=== PATIENT | male | born 1945 | race Caucasian/White ===

== ENCOUNTER 2021-08-31 10:11 | Inpatient (IN) | payer OTHER ==
[2021-08-31] MEDS ORDERED: NA CHLORIDE 0.9% 1,000 ML ONE (10:42)
[2021-08-31 10:49] LABS: Absolute Lymphocytes (CBC) 0.5 K/uL (0.7-4.9); Hematocrit 43.3 % (39.6-49.0); Lymphocytes % 9.9 % (15.3-44.8); MCV 88.4 fL (80-100); MPV 7.8 fL (7.6-11.3)
[2021-08-31 11:10] LABS: Protime INR 1.27
--- NOTE | 2021-08-31 11:17 | RAD REPORT ---
EXAM DESCRIPTION: CT - Ct Stroke Brain Wo Cont - 08/31/2021 11:06 am CLINICAL HISTORY: Slurred speech Headache, drowsiness, CVA symptomology COMPARISON: No comparisons TECHNIQUE: All CT scans are performed using dose optimization technique as appropriate and may inclu de automated exposure control or mA/KV adjustment according to patient size. FINDINGS: No intracranial hemorrhage, hydrocephalus or extra-axial fluid collection.Mild brain atrop hy.No areas of brain edema or evidence of midline shift. Vertebral atherosclerosis. The paranasal sinuses and mastoids are clear. The calvarium is intact. IMPRESSION: No acute intracranial abnormality. The findings were discussed with Dr Galan in the Er on 08/31/2021 at 10:25 a.m. by telephone.
[2021-08-31 11:23] LABS: Albumin 3.7 g/dL (3.4-5.0); Potassium 4.3 mmol/L (3.5-5.1)
[2021-08-31 11:28] LABS: SARS-CoV-2 Antigen Rapid Res Negative (Negative)
[2021-08-31 11:35] LABS: Urine Blood Trace-intact (Negative); Urine Glucose Negative (Negative); Urine Protein Trace (Negative); Urine Specific Gravity >=1.030 (1.005-1.030)
[2021-08-31 11:54] LABS: Urine Bacteria <20 /HPF (<20); Urine RBC <5 /HPF (None Seen)
[2021-08-31 11:55] LABS: Urine Mucus 2+ /HPF (None Seen)
--- NOTE | 2021-08-31 12:03 | RAD REPORT ---
EXAM DESCRIPTION: CT - Chest Abdomen Pelvis W Cont - 08/31/2021 11:51 am CLINICAL HISTORY: Chest and abdomen pain. Abdominal pain confusion s/p hernia surgery 2 days ago COMPARISON: No comparisons TECHNIQUE: Approximately 100 mL nonionic IV contrast was administered to the patient. All CT scans are performed using dose optimization technique as appropriate and may include automated exposure control or mA/KV adjustment according to patient size. FINDINGS: The lungs are clear.No pleural or pericardial effusion.No intrathoracic adenopathy. The liver, spleen, pancreas, adrenal glands and kidneys are within normal limits. Small volume pneumo bilia with cholecystectomy clips. Trace free air is present likely related to recent surgery. No bowel obstruction is present. Nonvisua lized appendix. Postsurgical changes left inguinal region noted with mild inflammation present in the region. No pathologic lymphadenopathy in the abdomen or pelvis. Moderate lumbar degenerative changes. IMPRESSION: No acute abnormality is identified.
--- NOTE | 2021-08-31 13:02 | ER ---
Nurse's Notes [facility] Name: Minesh Gutierrez Age: 75 yrs Sex: Male : 1945 Arrival Date: 08/31/2021 Time: 10:11 Bed 5 Private MD: Diagnosis: Altered Mental Status Presentation: 08/31 10:35 Chief complaint: Spouse and/or significant other states: states he had hernia bm7 surgery this week and yesterday he took a long nap around 11AM and when he woke up at 5PM he was not acting normal, conufused, and falling. Coronavirus screen: Vaccine status: Patient reports receiving the 1st dose of the Covid vaccine. Ebola Screen: Patient denies exposure to infectious person. Patient denies travel to an Ebola-affected area in the 21 days before illness onset. An acute neurological deficit is present. The charge nurse has been notified. The patients blood glucose was checked before arriving to the hospital and was found to be normal. Initial Sepsis Screen: Does the patient meet any 2 criteria? Altered Mental Status. HR > 90 bpm. Does the patient have a suspected source of infection? Yes: Skin breakdown/wound Other: pt had abdominal hernia repair on Saturday Risk Assessment: Do you want to hurt yourself or someone else? Patient reports no desire to harm self or others. Onset of symptoms was August 30, 2021 at 17:00. Care prior to arrival: Medication(s) given: vicodin yesterday evening. 10:35 Method Of Arrival: Wheelchair bm7 10:35 Acuity: CHARLEY 2 bm7 Triage Assessment: 10:43 The onset of the patients symptoms was more than six hours ago. General: Appears obese, bm7 Behavior is anxious, restless. Pain: Denies pain. EENT: No deficits noted. No signs and/or symptoms were reported regarding the EENT system. Neuro: Level of Consciousness is awake, alert, confused, Oriented to none Installation Superintendent are weak on left Weakness in left leg(s) Gait is unsteady, Speech is slurred, Facial symmetry appears normal, Pupils are PERRLA, Reports pt confused all history per . Cardiovascular: No deficits noted. Respiratory: Respiratory pattern is regular, symmetrical. GI: Abdomen is round Bowel sounds hypoactive in right upper quadrant and left upper quadrant. : No deficits noted. No signs and/or symptoms were reported regarding the genitourinary system. Derm: Skin is intact, is healthy with good turgor, Skin is dry, Skin is normal, Skin temperature is warm. Musculoskeletal: No deficits noted. No signs and/or symptoms reported regarding the musculoskeletal system. Stroke Activation: Physician: Stroke Attending; Name: Adama; Notified At: 10:20; Arrived At: Physician: Chief Stroke Resident; Name: ; Notified At: 10:20; Arrived At: Physician: Stroke Resident; Name: ; Notified At: 10:20; Arrived At: Physician: ED Attending; Name: ; Notified At: 10:20; Arrived At: Physician: ED Resident; Name: ; Notified At: 10:20; Arrived At: Historical: - Allergies: 10:43 No Known Allergies; bm7 - Home Meds: 10:43 amlodipine 2.5 mg tab 1 tab once daily [Active]; lisinopril-hydrochlorothiazide 20-12.5 bm7 mg Oral tab 1 tab once daily [Active]; Nexium 20 mg Oral cpDR 1 cap once daily [Active]; tetracycline 250 mg Oral cap 2 times per day [Active]; - PMHx: 10:43 Hypertension; rosasia; Barretts; bm7 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 - Social history:: Smoking status: Patient/guardian denies using. - Code Status:: unknown. Screenin:48 Abuse screen: Denies threats or abuse. Nutritional screening: pt had abdominal surgery bm7 . Tuberculosis screening: No symptoms or risk factors identified. Fall Risk Gait- Mental Status-. Assessment: 10:48 VAN Scoring: Arm Drift: Minor drift Visual Disturbance: No visual disturbance noted. bm7 Aphasia: Expressive aphasia noted. Provider notified of +VAN scoring. VAN Scoring: Aphasia: Expressive aphasia noted. Provider notified of +VAN scoring. Patient has been NPO before screening. The patient is alert, and able to follow commands. The patient exhibits slurred or garbled speech. The patient is exhibiting difficulty speaking. The patient is exhibiting difficulty understanding words. The patient is able to swallow own secretions with no drooling or need for suction. TNKase (Tenecteplase) Screening:. Reassessment: No changes from previously documented assessment. 11:09 Patient tolerated one teaspoon of water. No drooling, immediate coughing, gurgling, or bm7 clearing of the throat was noted. The patient tolerated 90mL of water. No drooling, immediate coughing, gurgling, or clearing of the throat was noted. The patient passed the bedside swallow screening. Oral medications may be given as ordered. Contact Physician for further diet orders. Provider notified of bedside swallow screening results: Daiana Galan MD. 11:15 Reassessment: states that pt has the urge to void but is not able to. Assisted bm7 with urinal. Pt unable to void. . 11:16 : Swelling noted on scrotum scrotum is swollen and bruised from surgery. EENT: Eyes bm7 pt is blind in the left eye. Derm: Wound noted umbilical area. 11:17 Derm: Wound noted left lower quadrant surgical incision covered with gauze and intact. bm7 No drainage noted. 12:13 Reassessment: Patient and/or family updated on plan of care and expected duration. Pain bm7 level reassessed. Patient is alert, oriented x 3, equal unlabored respirations, skin warm/dry/pink. Pt resting comfortable in bed in NAD. Equal rise and fall of chest. at bedside. 12:48 Reassessment: Patient and/or family updated on plan of care and expected duration. Pain bm7 level reassessed. Patient is alert, oriented x 3, equal unlabored respirations, skin warm/dry/pink. 13:21 Reassessment: notified ERP that pt is still not oriented. ERP states he will admit him. bm7 13:57 Reassessment: Patient and/or family updated on plan of care and expected duration. Pain bm7 level reassessed. Patient is alert, oriented x 3, equal unlabored respirations, skin warm/dry/pink. General: Appears confused. Behavior is restless. Neuro: Level of Consciousness is awake, confused, lethargic, Oriented to none. Respiratory: Airway is patent Respiratory effort is even, unlabored, Respiratory pattern is symmetrical. GI: Abdomen is round. Musculoskeletal: No deficits noted. No signs and/or symptoms reported regarding the musculoskeletal system. 15:00 Reassessment: Patient and/or family updated on plan of care and expected duration. Pain bm7 level reassessed. Patient states symptoms have not improved. 15:10 Reassessment: pt is anxious and confused trying to climb out of bed. Dr. Galan notified bm7 and states he would like Dr. Sullivan to assess. Dr. Sullivan notified and is on way. 15:17 Reassessment: Dr. Alfredito Sullivan hospitalist at bedside at this time. pt appears to be tw2 restless at this time, states repeatedly "i just want to go home", hospitalist notified of pts increased restlessness. 15:44 Reassessment: Patient and/or family updated on plan of care and expected duration. Pain bm7 level reassessed. Patient is alert, oriented x 3, equal unlabored respirations, skin warm/dry/pink. pt restless and agitated. Taking off gown and blood pressure cuff. at bedside to redirect. Will continue to monitor. Patient states symptoms have not improved. 15:54 Reassessment: unable to obtain vitals due to patient ripping off blood pressure cuff, bm7 leads, and pulse ox. 16:06 Reassessment: pt moved rooms to be closer to nurses and have appropriate resurces. bm7 16:14 Reassessment: No changes from previously documented assessment. pt remains restless at tw2 this time, Medicated per floor orders in [facility] with 0.5 mg IV Ativan. See pts chart in [facility]. 16:24 Reassessment: pt lying in bed with equal rise and fall of chest. In no apparent bm7 distress. eyes closed. equal rise and fall of chest. agitation improved. Patient states symptoms have improved. 16:42 Reassessment: pt moved to MRI at this time. bm7 16:56 General: MRI called to inform that pt is anxious, confused, and restless in MRI. Pt bm7 kicking and trying to remove MRI shield to neck. MRI states they are concerned that he is going to hurt himself. MRI not able to obtain accurate images. Dr. Sullivan called and new order received to administer Ativan 0.5mg IV now. Went to [place] to administer ativan to the LAC. Medication was not effective and pt did not have a change of anxiety or confusion. Will notify Dr. Sullivan . 17:45 Reassessment: Patient is alert, oriented x 3, equal unlabored respirations, skin bm7 warm/dry/pink. resting comfortably in bed, equal rise and fall of chest. at bedside Patient states symptoms have improved. 18:21 Reassessment: warehouse technician just informed pt has a room assignment with a sitter for bm7 the overnight babysitter. 18:27 Reassessment: Patient and/or family updated on plan of care and expected duration. Pain bm7 level reassessed. Patient is alert, oriented x 3, equal unlabored respirations, skin warm/dry/pink. 18:44 General: Appears in no apparent distress. bm7 Vital Signs: 10:35 BP 158 / 78; Pulse 104; Resp 18; Temp 98.9(TE); Weight 100 kg (M); Height 5 ft. 7 in. bm7 (170.18 cm); 11:09 BP 155 / 71; Pulse 101; Resp 16; Pulse Ox 99% on R/A; bm7 12:15 BP 136 / 70; Pulse 92; Resp 16; Pulse Ox 97% on R/A; bm7 12:48 BP 154 / 75; Pulse 99; Resp 16; Pulse Ox 99% on R/A; bm7 13:05 BP 143 / 74; Pulse 95; Resp 16; Pulse Ox 98% on R/A; bm7 13:23 Temp 99.1(O); bm7 13:59 BP 152 / 72; Pulse 102; Resp 16; Pulse Ox 99% on R/A; bm7 15:11 BP 165 / 83; Pulse 108; Resp 18; Pulse Ox 98% on R/A; bm7 16:25 BP 165 / 78; Pulse 104; Resp 22; Pulse Ox 97% on R/A; bm7 17:46 BP 136 / 59; Pulse 82; Resp 16; Pulse Ox 100% on R/A; bm7 18:27 BP 140 / 62; Pulse 62; Resp 24; Pulse Ox 100% on R/A; bm7 10:35 Body Mass Index 34.53 (100.00 kg, 170.18 cm) bm7 NIH Stroke Scale Scores: 10:48 NIHSS Score: 15 bm7 ED Course: 10:11 Patient arrived in ED. mr 10:14 Blanca Corona, NBA is Primary Nurse. bm7 10:14 Daiana Galan MD is Attending Physician. sp3 10:42 Triage completed. bm7 10:43 Arm band placed on right wrist. EKG completed in triage. Results shown to MD. EKG done bm7 per protocol. Performed by ED Staff. Shown to ED physician. Labs ordered per protocol. Drawn by ED staff. CT ordered. 10:48 Initial lab(s) drawn, by ED staff, EKG done, by ED staff. bm7 10:51 Bed in low position. Call light in reach. Client placed on continuous cardiac and pulse tw2 oximetry monitoring. NIBP monitoring applied. 10:51 Inserted saline lock: 18 gauge in left antecubital area, using aseptic technique. tw2 ,using aseptic technique. NBA Cole Blood collected. 11:08 CT-STROKE BRAIN W/O CONTRAST CT In Process Unspecified. EDMS 11:09 Warm blanket given. bm7 11:30 Lee cath inserted, using sterile technique, 18 Fr., by wa, to gravity drainage, urine 6 specimen collected. duarte Rios RN served as health science specialist. 11:[address] bm7 11:39 Urine Culture Sent. jh6 11:39 Urine Microscopic Only Sent. jh6 11:53 CT Chest, Abdomen, Pelvis - W/Contrast In Process Unspecified. EDMS 12:15 Warm blanket given. Head of bed Elevated. bm7 13:33 Alfredito Sullivan MD is Hospitalizing Provider. sp3 13:57 Appears restless. Awaiting bed assignment. bm7 15:00 Urine collected: Lee catheter specimen, carmelo colored, Amount Returned: 600mL. bm7 15:01 brief applied. bm7 17:22 Patient moved back from MRI. bm7 18:27 No apparent distress. Resting quietly. bm7 19:04 Report given to 2nd floor. Per floor nurse "Send her up". bm7 Administered Medications: 10:59 Drug: NS 0.9% 1000 ml Route: IV; Rate: 1 bolus; Site: left antecubital; 6 13:06 Follow up: IV Status: Completed infusion; IV Intake: 1000ml bm7 13:57 Follow up: IV Status: Completed infusion; IV Intake: 1000ml bm7 16:56 Drug: Ativan (LORazepam) 0.5 mg Route: IVP; Site: left antecubital; bm7 18:28 Follow up: Response: Anxiety decreased bm7 Medication: 10:48 VIS not applicable for this client. bm7 Point of Care Testing: Blood Glucose: 10:43 Blood Glucose: 128 mg/dL; bm7 Ranges: Intake: 13:06 IV: 1000ml; Total: 1000ml. bm7 13:57 IV: 1000ml; Total: 2000ml. bm7 Output: 11:30 Urine: 400ml (Straight Cath); Total: 400ml. jh6 15:00 Urine: 600ml (Lee); Total: 1000ml. bm7 Outcome: 13:01 Discharge ordered by MD. sp3 13:34 Decision to Hospitalize by Provider. sp3 19:51 Patient left the ED. lp1 NIH Stroke Scale - NIH Stroke Score Date: 08/31/2021 Time: 10:48 Total Score = 15 1a. Level of Consciousness (LOC) - 0(Alert) 1b. Level of Consciousness (LOC) (Month \\T\\ Age) - 2(Neither) 1c. LOC Commands (Open \\T\\ Closes Eyes/Straight Pin Making Machine Operator) - 1(One) 2. Best Gaze (Lateral Gaze Paresis) - 0(Normal) 3. Visual Field Loss - 0(No visual loss) 4. Facial Palsy - 0(Normal) 5a. Left Arm: Motor (10-second hold) - 2(Drift, some effort against gravity) 5b. Right Arm: Motor (10-second hold) - 2(Drift, some effort against gravity) 6a. Left Leg: Motor (5-second hold - always test supine) - 2(Drift, some effort against gravity) 6b. Right Leg: Motor (5-second hold - always test supine) - 2(Drift, some effort against gravity) 7. Limb Ataxia (finger/nose \\T\\ heel/matias - test with eyes open) - 2(Present in two limbs) 8. Sensory Loss (pinprick arms/legs/face) - 0(Normal) 9. Best Language: Aphasia (description/naming/reading) - 1(Mild to moderate aphasia) 10. Dysarthria (speech clarity - read or repeat words) - 1(Mild to Moderate) 11. Extinction and Inattention (visual/tactile/auditory/spatial/personal) - 0(No abnormality) Initials: bm7 Signatures: Dispatcher [employer] MELINDAMS Herrera, Micaela mr GeovanyMacie, RN RN lp1 Yara Mcdowell, RN RN tw2 Blanca Corona, RN RN bm7 Daiana Galan MD MD sp3 Dara Edouard RN RN jh6
--- NOTE | 2021-08-31 13:02 | EDPHYS ---
Physician Documentation [facility] Name: Minesh Gutierrez Age: 75 yrs Sex: Male : 1945 Arrival Date: 08/31/2021 Time: 10:11 Bed 5 Private MD: ED Physician Daiana Galan HPI: 08/31 10:32 This 75 yrs old Male presents to ER via Unassigned with complaints of Slurred Speech. sp3 10:32 75-year-old male with a history of hypertension presents with chief complaint slurred sp3 speech, confusion and yesterday morning. Patient had hernia repair done and [place] of his umbilical hernia and right inguinal hernia which makes today postop day 2. His states that yesterday he woke up and was having decreased mental status and was generally overall weaker than his baseline. This morning his speech was slurred and so she went to the ED for evaluation. Initially stroke protocol and stroke code was activated before I saw the patient and CT scan of the head demonstrates no visualized abnormality. His reports that the last time he was acting this way he was sepsis from pancreatitis. This was approximately 6 years ago. Patient does talk but is not as responsive as I would like him to be. He does deny having any significant pain except for the area around his surgical sites. There are no reports of fever or shortness of breath.. 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 - Social history:: Smoking status: Patient/guardian denies using. - Code Status:: unknown. ROS: 10:34 Unable to obtain ROS due to patient's inability to understand questions. sp3 Exam: 10:34 Constitutional: This is a well developed, well nourished patient who is awake, alert, sp3 and in no acute distress. Head/Face: Normocephalic, atraumatic. Eyes: Pupils equal round and reactive to light, extra-ocular motions intact. Lids and lashes normal. Conjunctiva and sclera are non-icteric and not injected. Cornea within normal limits. Periorbital areas with no swelling, redness, or edema. Neck: Trachea midline, no thyromegaly or masses palpated, and no cervical lymphadenopathy. Supple, full range of motion without nuchal rigidity, or vertebral point tenderness. No Meningismus. Chest/axilla: Normal chest wall appearance and motion. Nontender with no deformity. No lesions are appreciated. Respiratory: Lungs have equal breath sounds bilaterally, clear to auscultation and percussion. No rales, rhonchi or wheezes noted. No increased work of breathing, no retractions or nasal flaring. Skin: Warm, dry with normal turgor. Normal color with no rashes, no lesions, and no evidence of cellulitis. MS/ Extremity: Pulses equal, no cyanosis. Neurovascular intact. Full, normal range of motion. 10:34 Cardiovascular: She is in a regular tachycardia on traffic monitor specialist.. 10:34 Abdomen/GI: Surgical dressings in place without visualized bleeding. There is mild pain to palpation at surgical sites only and no peritoneal signs.. 10:34 Neuro: Responsive when asked simple direct questions but does not understanding complex communication. Grossly there are no neurological deficits. Gait was not tested. Cranial nerves II through XII for intact to the extent the patient can cooperate with exam.. Vital Signs: 10:35 BP 158 / 78; Pulse 104; Resp 18; Temp 98.9(TE); Weight 100 kg (M); Height 5 ft. 7 in. bm7 (170.18 cm); 11:09 BP 155 / 71; Pulse 101; Resp 16; Pulse Ox 99% on R/A; bm7 12:15 BP 136 / 70; Pulse 92; Resp 16; Pulse Ox 97% on R/A; bm7 12:48 BP 154 / 75; Pulse 99; Resp 16; Pulse Ox 99% on R/A; bm7 13:05 BP 143 / 74; Pulse 95; Resp 16; Pulse Ox 98% on R/A; bm7 13:23 Temp 99.1(O); bm7 13:59 BP 152 / 72; Pulse 102; Resp 16; Pulse Ox 99% on R/A; bm7 15:11 BP 165 / 83; Pulse 108; Resp 18; Pulse Ox 98% on R/A; bm7 16:25 BP 165 / 78; Pulse 104; Resp 22; Pulse Ox 97% on R/A; bm7 17:46 BP 136 / 59; Pulse 82; Resp 16; Pulse Ox 100% on R/A; bm7 18:27 BP 140 / 62; Pulse 62; Resp 24; Pulse Ox 100% on R/A; bm7 10:35 Body Mass Index 34.53 (100.00 kg, 170.18 cm) bm7 NIH Stroke Scale Scores: 10:48 NIHSS Score: 15 bm7 MDM: 10:25 Patient medically screened. sp3 10:37 Data reviewed: vital signs, nurses notes. ED course: 75-year-old male presents with sp3 slurred speech and altered mental status status post hernia repair postop day 2. Initial CT scan is negative and at this time I do not believe this is primarily a neurological problem. I am more concerned about sepsis and or delirium/electrolyte abnormality. Will obtain laboratory values and sepsis work-up including a CT scan of the chest abdomen and pelvis to assess for lung infection and/or abdominal complication from surgery. Normal saline 1 L has been given and we will add antibiotics if indicated.. 13:00 ED course: Is full imaging and laboratory values reviewed. There is no current sp3 identified etiology for patient's declining mental status. Will admit patient for observation, hydration for mildly elevated creatinine, and neurological consultation. Further imaging and work-up deferred to inpatient team.. 08/31 10:30 Order name: Blood Culture Adult (2) sp3 08/31 10:30 Order name: CBC with Diff; Complete Time: 11:29 sp3 08/31 10:30 Order name: CMP; Complete Time: 11:29 sp3 08/31 10:30 Order name: Lactate; Complete Time: 11: sp3 08/31 10:30 Order name: Protime (+inr); Complete Time: 11:29 sp3 08/31 10:30 Order name: Ptt, Activated; Complete Time: 11: sp3 08/31 10:30 Order name: Urine Culture sp3 08/31 10:30 Order name: Urine Microscopic Only; Complete Time: 12:03 [facility] 08/31 10:31 Order name: CT Chest, Abdomen, Pelvis - W/Contrast; Complete Time: 12:55 [facility] 08/31 10:56 Order name: CT-STROKE BRAIN W/O CONTRAST CT; Complete Time: 11:29 08/31 10:57 Order name: SARS RAPID; Complete Time: 11:29 08/31 11:36 Order name: Urine Dipstick-Ancillary; Complete Time: 12:03 [facility] 08/31 12:23 Order name: Glucose, Ancillary Testing; Complete Time: 12:55 [facility] 08/31 18:16 Order name: MRI [facility] 08/31 10:30 Order name: Accucheck; Complete Time: 11:00 [facility] 08/31 10:30 Order name: Cardiac monitoring; Complete Time: 10:39 [facility] 08/31 10:30 Order name: EKG - Nurse/Tech; Complete Time: 10:39 [facility] 08/31 10:30 Order name: IV Saline Lock - Large Bore; Complete Time: 11:39 [facility] 08/31 10:30 Order name: Labs collected and sent; Complete Time: 11:00 [facility] 08/31 10:30 Order name: O2 Per Protocol; Complete Time: 11:00 [facility] 08/31 10:30 Order name: O2 Sat Monitoring; Complete Time: 10:59 [facility] 08/31 11:39 Order name: Cath; Complete Time: 11:39 [facility] 08/31 15:59 Order name: CONS Physician Consult [facility] Administered Medications: 10:59 Drug: NS 0.9% 1000 ml Route: IV; Rate: 1 bolus; Site: left antecubital; [facility] 13:06 Follow up: IV Status: Completed infusion; IV Intake: 1000ml [facility] 13:57 Follow up: IV Status: Completed infusion; IV Intake: 1000ml 7 16:56 Drug: Ativan (LORazepam) 0.5 mg Route: IVP; Site: left antecubital; [facility] 18:28 Follow up: Response: Anxiety decreased bm7 Point of Care Testing: Blood Glucose: 10:43 Blood Glucose: 128 mg/dL; 7 Ranges: Critical Glucose Levels:Adult <50 mg/dl or >400 mg/dl <40 mg/dl or >180 mg/dl Disposition Summary: 08/31/21 13:34 Hospitalization Ordered Hospitalization Status: Inpatient Admission sp3 Provider: Alfredito Sullivan sp3 Location: Telemetry/MedSurg (Inpatient)(08/31/21 13:34) sp3 Condition: Stable(08/31/21 13:34) sp3 Problem: new sp3 Symptoms: have worsened sp3 Bed/Room Type: Standard sp3 Room Assignment: 201(08/31/21 18:19) bd Diagnosis - Altered Mental Status sp3 Forms: - Medication Reconciliation Form sp3 - SBAR form sp3 NIH Stroke Scale - NIH Stroke Score Date: 08/31/2021 Time: 10:48 Total Score = 15 1a. Level of Consciousness (LOC) - 0(Alert) 1b. Level of Consciousness (LOC) (Month \T\ Age) - 2(Neither) 1c. LOC Commands (Open \T\ Closes Eyes/Associate Field Service Engineer) - 1(One) 2. Best Gaze (Lateral Gaze Paresis) - 0(Normal) 3. Visual Field Loss - 0(No visual loss) 4. Facial Palsy - 0(Normal) 5a. Left Arm: Motor (10-second hold) - 2(Drift, some effort against gravity) 5b. Right Arm: Motor (10-second hold) - 2(Drift, some effort against gravity) 6a. Left Leg: Motor (5-second hold - always test supine) - 2(Drift, some effort against gravity) 6b. Right Leg: Motor (5-second hold - always test supine) - 2(Drift, some effort against gravity) 7. Limb Ataxia (finger/nose \T\ heel/matias - test with eyes open) - 2(Present in two limbs) 8. Sensory Loss (pinprick arms/legs/face) - 0(Normal) 9. Best Language: Aphasia (description/naming/reading) - 1(Mild to moderate aphasia) 10. Dysarthria (speech clarity - read or repeat words) - 1(Mild to Moderate) 11. Extinction and Inattention (visual/tactile/auditory/spatial/personal) - 0(No abnormality) Initials: bm7 Signatures: Dispatcher [employer] EDMS Ann Arndt Brittany, RN RN bm7 Daiana Galan MD MD 3 Dara Edouard RN RN 6 Corrections: (The following items were deleted from the chart) 13:32 13:00 ED course: Patient is improved and states that he is almost back to sp3 his baseline. CT scan and all laboratory values show no significant abnormality. Patient has urine output and received 1 L normal saline. There is no indication for antibiotics at this time. We will discharge patient home and have him follow-up with the surgeon as needed.. sp3 13:33 13:01 Home sp3 sp3 13:33 13:01 Stable sp3 sp3 13:33 13:01 Weakness sp3 sp3 18:19 13:34 sp3 bd
[2021-08-31] MEDS ORDERED: ONDANSETRON 4 MG/2 ML VIAL IV PRN (16:03)
[2021-08-31] MEDS ORDERED: LORazepam 2 MG/ML VIAL IV PRN (16:03)
--- OUTSIDE RECORDS SUMMARY | 2021-08-31 16:13 | XMS REPORT | Continuity of Care Document ---
:1945 Author Organization [facility] t Address [address] [place] [address] [address]. [address] [place] [address] Care Team Providers Name Role Phone Adolph QA TEST ANALYST Primary Care Physician CORNING Attending Clinician Unavailable Doctor Unassigned, Name Attending Clinician Unavailable Chacorta SKAGGS, K.H. Attending Clinician Payers Payer Name Policy Type Policy Number Effective Date Expiration Date S ource Problems Condition Condition Condition Status Onset Resolution Last Treating Co mments Source Name Details Category Date Date Treatment Clinician Date Other Other Disease Active Univers constipati constipati 10-18 it y of on on 00:00: [address] Esophageal Esophageal Disease Active U nivers reflux reflux 10-18 ity of 00:00: [address] Jaundice Jaundice Disease Active Unive rs 1-17 ity of 00:00: [address] Vargas's Vargas's Disease Active Overview: Univers esophagus esophagus 6-12 Formattin i ty of without without 00:00: g of this [place] dysplasia dysplasia 00 note Medi natasha might be Branch different from the original. Added automatic ally from request for surgery [id number] Allergies, Adverse Reactions, Alerts Allergy Allergy Status Severity Reaction(s) Onset Inactive Treating Comm ents Source Name Type Date Date Clinician NO KNOWN Drug Active Univers ALLERGIE Class ity of S [facility] Social History Social Habit Start Date Stop Date Quantity Comments Source History of tobacco Cigarette Smoker University of use [facility] Exposure to 2021-08-05 2021-08-15 Not sure University SARS-CoV-2 (event) 00:00:00 12:13:00 [facility] Alcohol intake 2021-08-15 2021-08-15 Ex-drinker [facility] 00:00:00 00:00:00 (finding) [facility] Cigarettes smoked 2020-02-28 2020-02-28 Univers ity of current (pack per 00:00:00 00:00:00 ) - Reported Branch Cigarette 2020-02-28 2020-02-28 University of pack-years 00:00:00 00:00:00 [facility] Tobacco use and 2020-02-28 2020-02-28 Former smokeless Uni versity of exposure 00:00:00 00:00:00 tobacco user [facility] Sex Assigned At [birth year] Universit y of 00:00:00 00:00:00 [facility] Smoking Status Start Date Stop Date Source Ex-smoker 2020-02-28 00:00:00 2020-02-28 00:00:00 Universi ty [facility] Medications Ordered Filled Start Stop Current Ordering Indication Dosage Frequency Signature Comments Components Source Medication Medication Date Date Medication? Clinician (SIG) Name Name aspirin 81 Yes 81mg Take 81 mg U nivers mg chewable 7-05 by mouth ity of tablet 12:24: daily. [address] aspirin 81 Yes 81mg Take 81 mg U nivers mg chewable 7-05 by mouth ity of tablet 12:24: daily. [address] omeprazole Yes [id number] 20mg Take 1 Univers 20 mg 7-05 capsule by ity of capsule 00:00: mouth [place] daily. [facility] atorvastati Yes 20mg Take 20 mg Univers n 20 mg 6-21 by mouth ity of tablet 00:00: daily. [facility] levothyroxi Yes 25ug Take 25 Uni vers ne 25 mcg 6-21 mcg by ity of tablet 00:00: mouth. [facility] atorvastati Yes 20mg Take 20 mg Univers n 20 mg 6-21 by mouth ity of tablet 00:00: daily. [facility] levothyroxi Yes 25ug Take 25 Uni vers ne 25 mcg 6-21 mcg by ity of tablet 00:00: mouth. 00 Medical Branch meloxicam Yes [id number] 15mg Take 1 Univers (MOBIC) 15 6-17 9100 tablet by ity of mg tablet 00:00: mouth 00 daily. Medical Branch meloxicam Yes [id number] 15mg Take 1 Univers (MOBIC) 15 6-17 9100 tablet by ity of mg tablet 00:00: mouth 00 daily. Medical Branch valACYclovi 2020-02 Yes Univer s r 1 gram 0-25 ity of tablet 00:00: 00 Medical Branch valACYclovi 2020-02 Yes Univer s r 1 gram 0-25 ity of tablet 00:00: Medical Branch omeprazole 2021- No [id number] 20mg Take 1 Univers 20 mg 10-19 capsule by ity of capsule 00:00: 00:00 mouth [place] 00 :00 daily. Medical Branch Immunizations Ordered Filled Immunization Date Status Comments [facility] Immunization Name Name SARS-COV-2 COVID-19 2020-12-20 Completed Unive rsity of MODERNA 0.25ML 00:00:00 [facility] natasha BOOSTER VACCINE Branch SARS-COV-2 COVID-19 2020-12-20 Completed Unive rsity of MODERNA 0.25ML 00:00:00 [facility] BOOSTER VACCINE Branch SARS-COV-2 COVID-19 2020-03-22 Completed Unive rsity of MODERNA VACCINE 00:00:00 [facility] SARS-COV-2 COVID-19 2020-03-22 Completed Unive rsity of MODERNA VACCINE 00:00:00 [facility] SARS-COV-2 COVID-19 2020-02-23 Completed Unive rsity of MODERNA VACCINE 00:00:00 [facility] SARS-COV-2 COVID-19 2020-02-23 Completed Unive rsity of MODERNA VACCINE 00:00:00 [facility] Vital Signs Vital Name Observation Time Observation Value Comments Source Systolic blood 2021-08-09 15:22:00 130 mm[Hg] Univer sity of pressure [facility] Diastolic blood 2021-08-09 15:22:00 66 mm[Hg] Unive rsity of pressure [facility] Heart rate 2021-08-09 15:22:00 66 /min [facility] Respiratory rate 2021-08-09 15:22:00 17 /min [facility] Oxygen saturation in 2021-08-09 15:22:00 98 /min [facility] Arterial blood by [facility] Pulse oximetry [place] Body temperature 2021-08-09 15:18:00 36.33 Yolanda [facility] Body height 2021-08-09 15:18:00 170.2 cm [facility] Body weight 2021-08-09 15:18:00 101.424 kg [facility] BMI 2021-08-09 15:18:00 35.02 kg/m2 [facility] Procedures Procedure Date / Time Performed Performing Clinician [facility] 2021-08-21 05:01:00 Doctor Unassigned, No Univer [facility] RELEASE/CLEARANCE Name [facility] FORMS Encounters Start End Encounter Admission Attending Care Care Encounter Source Date/Time Date/Time Type Type Clinicians Facility Department ID 2022-08-16 2022-08-16 Outpatient R KEMAR [facility] [id number] N-20 Univers 11:00:00 11:00:00 ESEQUIEL [id number] ity of [facility] 2021-08-21 2021-08-21 Orders Doctor REINOSO [id number] Univers 00:00:00 00:00:00 Only Unassigned, GENO [id number] ity of [place] [facility] [id number] Ruddy as [phone] [facility] 009 Branch 2021-08-09 2021-08-[address] [facility] [id number] Univers 10:00:00 10:55:15 Visit Eda RODRIGUEZ [id number] ity of [place] [id number] [place] PROF[place] [phone] [place] NAL 059 Branch BUILDING Results This patient has no known results.
[2021-08-31] MEDS ORDERED: NA CHLORIDE 0.9% 1,000 ML IV SCH (17:00)
[2021-08-31] MEDS ORDERED: LORazepam 2 MG/ML VIAL ONE (17:07)
--- NOTE | 2021-08-31 18:13 | RAD REPORT ---
EXAM DESCRIPTION: MRI - Brain Wo Cont - 08/31/2021 5:25 pm CLINICAL HISTORY: altered mentation,slurred speech,r/o CVA COMPARISON: Chest Single View dated 02/07/2020; Chest Pa And Lat (2 Views) dated 06/11/2017; Chest Pa And Lat (2 Views) dated 05/02/2016; CHEST PA AND LAT 2 VIEW dated 12/19/2010rain Wo Cont dated 6; MRA Head Wo Cont dated 07/14/2015 TECHNIQUE: Sagittal T1-weighted images were obtained along with PD/heavily T2-weighted and T2-FLAIR images. Axial DWI and ADC mapping sequences were also obtained along with coronal heavily T2-weighted images were obtained. FINDINGS: Limited due motion. The contrast portion of the exam was not performed as the patient was unable to tolerate. Within these limitations, no evidence of an acute infract. No hydrocephalus or midline shift. Chronic small vessel ischemic changes are noted. The paranasal sinuses are largely obscured due to motion. N o mastoid effusion. The calvarium is grossly intact. IMPRESSION: Limited by motion. Grossly, no evidence of acute infarct or other intracranial abnormali ty identified.
--- NOTE | 2021-08-31 19:24 | P.HP ---
Certification for Inpatient Patient admitted to: Observation With expected LOS: <2 Midnights Practitioner: I am a practitioner with admitting privileges, knowledge of patient current condition, hospital course, and medical plan of care. Services: Services provided to patient in accordance with Admission requirements found in Title 42 Section 412.3 of the Code of Federal Regulations Patient History Date of Service: 08/31/21 Reason for admission: altered mentation, slurred speech History of Present Illness: 75yo M, PMH: HTN, Rosacea, Barretts esophagus, hypothyroidism, HLD Brought to ED due to altered mentation, generalized weakness, and slight slurred speech since yesterday ~530pm. Patient's at bedside to provide history. Patient underwent elective umbilical and inguinal hernia repair 2 days ago in [facility]. He was discharged home and was reportedly doing ok. He was tired and slept most of the day yesterday, and upon waking at 530pm, patient was noted to have some slurred speech, confusion, general weakness, and he urinated on the floor. Family helped him around. He took an additional hydrocodone around 6 pm. In the evening, his symptoms seemed to worsen according to his so they brought him to the ED today. Denies fever, no chills, no diarrhea, +flatus, no BM, no abdominal pain, no rash/lesions, no numbness/tingling, no change in vision/hearing. Throughout interview, patient states he "just wants to go home" and feels as though he needs to pee. A higgins was inserted in the ED. CT head, abd/pelvis were all negative for any acute process. Labs only notable for mild increase in creatinine. Patient admitted for further evaluation. Allergies No Known Allergies Allergy (Unverified 07/02/15 16:17) Home Medications: Amlodipine Besylate [Norvasc] 2.5 mg PO DAILY 07/02/15 Lisinopril/Hydrochlorothiazide [Zestoretic 20-12.5 mg Tablet] 1 each PO DAILY 07/02/15 Tetracycline HCl 250 mg PO BID 07/02/15 - Past Medical/Surgical History Diabetic: No -: hypothyroid -: Rosasia -: Alcoholic -: SARAH -: APPE - Family History Family History: Reviewed- Non-Contributory - Social History Smoking Status: Former smoker Alcohol use: No CD- Drugs: No Caffeine use: Yes Place of Residence: Home Review of Systems is unable to be obtained (accurately) Physical Examination - Physical Exam General: Alert, Oriented x1, Confused HEENT: PERRLA, EOMI, Sclerae nonicteric Neck: Supple Respiratory: Clear to auscultation bilaterally, Normal air movement Cardiovascular: No edema, No murmurs, Other (sinus tachycardia) Gastrointestinal: Soft and benign, Non-distended, Other (surgical incisions without evidence of infection) Musculoskeletal: No tenderness Integumentary: No rashes, No tenderness/swelling Neurological: Normal speech, Other (moves all extremities equally/bilaterally, sensation intact, strength intact, CN3-12 grossly intact) Urinary: Higgins catheter (placed in ED) - Studies Laboratory Data (last 24 hrs) 08/31/21 10:48: PT 14.0 H, INR 1.27, APTT 33.0 08/31/21 10:34: Sodium 136, Potassium 4.3, BUN 20 H, Creatinine 1.43 H, Glucose 126 H, Total Bilirubin 1.0, AST 52 H, ALT 51, Alkaline Phosphatase 98 08/31/21 10:34: WBC 4.9, Hgb 14.6, Hct 43.3, Plt Count 140 L Assessment and Plan - Advance Directives Does patient have a Living Will: No Does patient have a Durable POA for Healthcare: No Physician Review Additional Text: Problem List: Acute encephalopathy suspect secondary to opioid medication / delirium KAREN Hypothyroidism HLD Vargas's esophagus imaging negative for infectious etiology, patient does not appear septic tachycardia and mild hypertension secondary to delirium / agitation KAREN secondary to hypovolemia - post-op, didn't eat much, slept through day yesterday suspect delirium secondary to hydrocodone use. Last taken 6pm yesterday started synthroid and statin ~1 month ago, low risk for etiology no other changes in medications recently NPO for now, bedside swallow higgins inserted in ED, maintain for now MRI ordered neuro consulted IVF ativan for agitation VTE: lovenox Code: full Dispo: home, 1-2 days Time Spent Managing Pts Care (In Minutes): 65
[2021-08-31] MEDS ORDERED: ACETAMINOPHEN 325 MG TABLET PO PRN (20:14)
[2021-08-31] MEDS ORDERED: ACETAMINOPHEN 500 MG TAB PO PRN (20:30)
[2021-08-31 20:55] LABS: Thyroid Stimulating Hormone 1.53 uIU/mL (0.360-3.740)
[2021-08-31 21:06] VITALS: BMI 34.5
[2021-08-31] MEDS: NA CHLORIDE 0.9% 1,000 ML IV SCH (21:08)
[2021-08-31] MEDS: CEFOXITIN 1 GM in NA CHLORIDE 0.9% 50 ML IVPB SCH (21:15)
[2021-08-31] MEDS ORDERED: ACETAMINOPHEN 650MG/RECT SUPP PR ONE (21:23)
[2021-09-01] MEDS: NA CHLORIDE 0.9% 1,000 ML IV SCH ×4 (04:16→20:14)
[2021-09-01 04:19] LABS: Absolute Lymphocytes (CBC) 0.5 K/uL (0.7-4.9); Hematocrit 39.8 % (39.6-49.0); Lymphocytes % 10.4 % (15.3-44.8); MCV 89.1 fL (80-100); MPV 7.6 fL (7.6-11.3); RBC Red Blood Cell Count 4.47 M/uL (4.33-5.43)
[2021-09-01 04:41] LABS: Albumin 3.1 g/dL (3.4-5.0); Bilirubin Total 1.3 mg/dL (0.2-1.0); Magnesium 2.2 mg/dL (1.8-2.4); Potassium 4.2 mmol/L (3.5-5.1); Protein, Total 6.4 g/dL (6.4-8.2)
[2021-09-01] MEDS: CEFOXITIN 1 GM in NA CHLORIDE 0.9% 50 ML IVPB SCH ×3 (05:19→20:13)
--- NOTE | 2021-09-01 05:58 | P.PN ---
Date of Service: 09/01/21 Subjective: Alert and oriented x2 More pleasant, calm, not agitated Still remains confused ROS: 10 point ROS as noted above, otherwise negative Physical exam GEN: Alert, orientedx2, NAD HEENT: Normal conjunctiva, sclera anicteric CV: Regular rate and rhythm, no edema Pulm: Non-labored respirations on room air ABD: Soft, nontender, nondistended, surgical incision without erythema, no drainage Integumentary: No rashes Neuro: Normal speech, normal affect Problem List: Acute encephalopathy suspect secondary to opioid medication / delirium KAREN Hypothyroidism HLD Vargas's esophagus imaging negative for infectious etiology developed fever after admission; started on antibiotics Dr. Begum consulted, incisions do not appear infected tachycardia and mild hypertension secondary to delirium / agitation KAREN secondary to hypovolemia - post-op, didn't eat much, slept through day; improving with IVF suspect delirium secondary to hydrocodone use. Last taken 6pm day prior to admission, improving started synthroid and statin ~1 month ago, low risk for etiology no other changes in medications recently advance diet higgins inserted in ED, dc today MRI negative VTE: lovenox Code: full Dispo: home, ~1 day Time Spent Managing Pts Care (In Minutes): 35
[2021-09-01] MEDS: ENOXAPARIN 40 MG/0.4 ML SQ SCH (08:42)
--- NOTE | 2021-09-01 18:50 | CON ---
Date of Consultation: 09/01/2021 Reason For Consultation: Consult for abdominal evaluation and previous surgery evaluation. History Of Present Illness: This is a case of a 75-year-old patient with multiple medical problems t hat appeared to have some change in mental status. He has been taking some pain medications for surg eries done electively inguinal and umbilical region . From those area, he is doing great, but when he initially was going to come to the office, we advised him to come to the ER due to altere d mental status and although he could be drug induced, at the same time we sent him to the ER to rule out a stroke. Apparently, stroke has been ruled out. He is unable to say what is causing the harding e in mental status. Apparently, the patient in the past was a heavy drinker. He quit not too long a go. He claimed right now he is not using alcohol or any other drugs combined with the medication. W jo we asked him about his medication, how much he is taking, he is not completely sure, so he is adm itted to the hospital. We are trying to control his medications and see if the mental status improve s. At the same time, they asked me to evaluate the surgical site. This patient is showing up on and off low-grade fever. The patient is awake, alert. He wants to go home, but once again I explained to him that the medical doctors is doing final evaluation on him and we have to make sure it is safe for him to be discharged. He has a good appetite. He is passing gas. Physical Examination: Chest: Clear. Bilateral breath sounds. Abdomen: Soft and depressible. Intact surgical site. Incisions are intact. No infection. No drai nage. No hernias palpated. Extremities: Good capillary refill. Laboratory Data: WBC count is 4.4, hemoglobin of 13.9. Plan: From the surgical standpoint, incision looks okay. From the surgical standpoint, once he is b efrem from the mental status changes, he can be discharged home with followup in my office. We encouraged incentive spirometry and ambulat ion when it is safe. HM/MODL Voice ID: [id number] Report ID: [id number]
[2021-09-01] MEDS ORDERED: CEFOXITIN 1 GM in NA CHLORIDE 0.9% 50 ML IVPB SCH (20:32)
[2021-09-02] MEDS: NA CHLORIDE 0.9% 1,000 ML IV SCH (03:45)
[2021-09-02 04:49] VITALS: TEMP 97.5
[2021-09-02] MEDS: CEFOXITIN 1 GM in NA CHLORIDE 0.9% 50 ML IVPB SCH (05:55)
--- NOTE | 2021-09-02 06:08 | P.PN ---
Date of Service: 09/02/21 Subjective: ROS: 10 point ROS as noted above, otherwise negative Physical exam GEN: Alert, orientedx2, NAD HEENT: Normal conjunctiva, sclera anicteric CV: Regular rate and rhythm, no edema Pulm: Non-labored respirations on room air ABD: Soft, nontender, nondistended, surgical incision without erythema, no drainage Integumentary: No rashes Neuro: Normal speech, normal affect Problem List: Acute encephalopathy suspect secondary to opioid medication / delirium KAREN Hypothyroidism HLD Vargas's esophagus imaging negative for infectious etiology developed fever after admission; started on antibiotics Dr. Begum consulted, incisions do not appear infected tachycardia and mild hypertension secondary to delirium / agitation KAREN secondary to hypovolemia - post-op, didn't eat much, slept through day; improving with IVF suspect delirium secondary to hydrocodone use. Last taken 6pm day prior to admission, improving started synthroid and statin ~1 month ago, low risk for etiology no other changes in medications recently advance diet higgins inserted in ED, dc today MRI negative VTE: lovenox Code: full Dispo: home, ~1 day Time Spent Managing Pts Care (In Minutes): 35
--- NOTE | 2021-09-02 06:25 | EKG ---
Test Date: 2021-08-31 Test Time: 10:39:12 Dialysis Biomed Technician: EARNEST MEASUREMENT RESULTS: Intervals: Rate: 104 WI: 170 QRSD: 136 QT: 384 QTc: 504 Mcintosh: P: 70 WI: 170 QRS: -66 T: 51 INTERPRETIVE STATEMENTS: Sinus tachycardia Right bundle branch block Left anterior fascicular block Bifascicular block Abnormal ECG Compared to ECG 07/02/2015 19:33:54 Right bundle-branch block now present Left anterior fascicular block now present Bifascicular block now present Short WI interval no longer present Left-axis deviation no longer present Myocardial infarct finding no longer present Electronically Signed On 09-02-21 06:22:49 CDT by Gil Kenny
[2021-09-02 06:36] LABS: Absolute Lymphocytes (CBC) 0.6 K/uL (0.7-4.9); Hematocrit 38.4 % (39.6-49.0); Lymphocytes % 15.7 % (15.3-44.8); MCV 88.2 fL (80-100); MPV 7.9 fL (7.6-11.3); RBC Red Blood Cell Count 4.35 M/uL (4.33-5.43)
[2021-09-02 06:52] LABS: Albumin 2.9 g/dL (3.4-5.0); Bilirubin Total 1.2 mg/dL (0.2-1.0); Magnesium 2.3 mg/dL (1.8-2.4); Potassium 4.1 mmol/L (3.5-5.1); Protein, Total 5.9 g/dL (6.4-8.2)
[2021-09-02] MEDS ORDERED: ATORVASTATIN 20 MG TAB PO SCH (09:00)
[2021-09-02] MEDS ORDERED: TAMSULOSIN 0.4 MG SR CAP PO SCH (09:00)
[2021-09-02] MEDS ORDERED: ASPIRIN EC 81 MG TAB PO SCH (09:00)
[2021-09-02] MEDS: ENOXAPARIN 40 MG/0.4 ML SQ SCH (09:04)
[2021-09-02 10:14] VITALS: O2SAT 97
[2021-09-02 13:26] VITALS: BP 123/57
--- NOTE | 2021-09-02 21:19 | P.DS ---
Admission Date: 08/31/21 Discharge Date: 09/02/21 Disposition: ROUTINE DISCHARGE Discharge Condition: GOOD Reason for Admission: altered mentation, slurred speech Consultations: Dr. Kel Medina Brief History of Present Illness: 75yo M, PMH: HTN, Rosacea, Barretts esophagus, hypothyroidism, HLD Brought to ED due to altered mentation, generalized weakness, and slight slurred speech since yesterday ~530pm. Patient's at bedside to provide history. Patient underwent elective umbilical and inguinal hernia repair 2 days ago in [facility]. He was discharged home and was reportedly doing ok. He was tired and slept most of the day yesterday, and upon waking at 530pm, patient was noted to have some slurred speech, confusion, general weakness, and he urinated on the floor. Family helped him around. He took an additional hydrocodone around 6 pm. In the evening, his symptoms seemed to worsen according to his so they brought him to the ED today. Denies fever, no chills, no diarrhea, +flatus, no BM, no abdominal pain, no rash/lesions, no numbness/tingling, no change in vision/hearing. Throughout interview, patient states he "just wants to go home" and feels as though he needs to pee. A higgins was inserted in the ED. CT head, abd/pelvis were all negative for any acute process. Labs only notable for mild increase in creatinine. Patient admitted for further evaluation. Hospital Course: Problem List: Acute toxic encephalopathy secondary to bactrim or hydrocodone KAREN, prerenal Hypothyroidism HLD Vargas's esophagus Patient was noted to be confused and dehydrated. He developed low grade fever as well. Workup was negative for infection - chest x-ray, CT chest/abdomen/pelvis, urine studies, CT head, MRI brain were all negative for any acute process Surgical incisions did not appear infected. Dr. Begum evaluated the patient as well and agreed. Suspect patient's confusion/delirium was secondary to Bactrim or possibly from hydrocodone. Patient had improvement of his symptoms, he was ambulating well, and deemed stable for discharge home. Patient is discharged with 4 more days of antibiotics per Dr. Begum's recommendation. Patient instructed to discontinue hydrocodone and bactrim. Resume other home medications as previously prescribed. Follow up with PCP within 3-5 days. Follow up with Dr. Begum Vital Signs/Physical Exam: Temp Pulse Resp BP Pulse Ox 97.5 F 77 16 123/57 L 97 09/02/21 12:00 09/02/21 12:00 09/02/21 12:00 09/02/21 12:00 09/02/21 12:00 Physical exam GEN: Alert, orientedx3, NAD HEENT: Normal conjunctiva, sclera anicteric CV: Regular rate and rhythm, no edema Pulm: Non-labored respirations on room air ABD: Soft, nontender, nondistended, surgical incision without erythema, no drainage Neuro: Normal speech, normal affect Laboratory Data at Discharge: WBC 4.1 K/uL (4.3-10.9) L 09/02/21 06:00 Hgb 13.4 g/dL (13.6-17.9) L 09/02/21 06:00 Hct 38.4 % (39.6-49.0) L 09/02/21 06:00 Plt Count 123 K/uL (152-406) L 09/02/21 06:00 PT 14.0 SECONDS (9.5-12.5) H 08/31/21 10:48 INR 1.27 08/31/21 10:48 APTT 33.0 SECONDS (24.3-36.9) 08/31/21 10:48 Sodium 135 mmol/L (136-145) L 09/02/21 06:00 Potassium 4.1 mmol/L (3.5-5.1) 09/02/21 06:00 BUN 14 mg/dL (7-18) 09/02/21 06:00 Creatinine 0.87 mg/dL (0.55-1.3) 09/02/21 06:00 Glucose 101 mg/dL (74-106) 09/02/21 06:00 Magnesium 2.3 mg/dL (1.8-2.4) 09/02/21 06:00 Total Bilirubin 1.2 mg/dL (0.2-1.0) H 09/02/21 06:00 AST 44 U/L (15-37) H 09/02/21 06:00 ALT 45 U/L (12-78) 09/02/21 06:00 Alkaline Phosphatase 95 U/L (45-117) 09/02/21 06:00 Home Medications: Aspirin [Adult Aspirin Regimen] 81 mg PO DAILY 08/31/21 Atorvastatin Calcium [Lipitor*] 20 mg PO DAILY 08/31/21 Levothyroxine Sodium [Levothyroxine] 25 mcg PO DAILY 08/31/21 Meloxicam [Mobic] 15 mg PO DAILY 08/31/21 Omeprazole 20 mg PO DAILY 08/31/21 Tamsulosin [Flomax*] 0.4 mg PO DAILY 08/31/21 Cefuroxime Axetil [Cefuroxime] 500 mg PO BID 4 Days #8 tab 09/02/21 New Medications: Cefuroxime Axetil [Cefuroxime] 500 mg PO BID 4 Days #8 tab Followup: Chet Begum MD [ACTIVE - CAN ADMIT] - Gary Farfan FNP [Primary Care Provider] - 2-3 Days Time spent managing pt's care (in minutes): 45
== END 2021-09-02 14:14 | disposition home or self-care (01) | DRG 91 ==
LOC: ER 10:11 → ERHOLD 15:56 → 2ND 19:14
PROVIDERS: ADMIT Hospitalist; ATTEND Hospitalist
DX: G92.8 Other toxic encephalopathy (principal); R65.11 Systemic inflammatory response syndrome (SIRS) of non-infectious origin with acute organ dysfunction; N17.9 Acute kidney failure, unspecified; L71.9 Rosacea, unspecified; E03.9 Hypothyroidism, unspecified; E78.5 Hyperlipidemia, unspecified; T36.8X5A Adverse effect of other systemic antibiotics, initial encounter; Y92.009 Unspecified place in unspecified non-institutional (private) residence as the place of occurrence of the external cause; T40.2X5A Adverse effect of other opioids, initial encounter; K22.70 Barrett's esophagus without dysplasia; E86.0 Dehydration; Z87.891 Personal history of nicotine dependence; Z20.822 Contact with and (suspected) exposure to COVID-19
CPT/HCPCS: 36415; 51702; 70450; 70551; 71260; 74177; 80053; 81003; 81015; 82947; 83605; 83735; 84439; 84443; 85025; 85610; 85730; 87040; 87086; 87088; 87804; 87811; 93005; 94010; 94760; 96361; 96374; 97116; 97161; 99285; J0694; J1650; J7030; Q9967; U0003